=== PATIENT | female | born 1980 | race Caucasian/White ===

== ENCOUNTER 2021-03-29 09:09 | Outpatient (REF) | payer BC, SELFPAY ==
[2021-03-29 11:40] LABS: Appearance Urine CLOUDY; Color Urine YELLOW; Glucose Urine UA NEG (NEG); Leukocyte Esterase Urine NEG (NEG); Nitrite Urine POS (NEG); Specific Gravity - Urine >= 1.030 (1.005-1.025); UACC Culture Trigger YES; Urine Blood 3+ (NEG); Urine Ketones 5 MG/DL (NEG); Urine Protein TRACE MG/DL (NEG-TRACE)
[2021-03-29 11:49] LABS: Alanine Aminotransferase 9 U/L (0-31); Albumin Level 4.3 g/dL (3.5-5.0); Alkaline Phosphatase 71 U/L (39-117); Anion Gap 11 (12-20); Aspartate Amino Transferase 20 U/L (5-31); Bilirubin Total 0.9 mg/dL (0.0-1.0); Blood Urea Nitrogen 13 mg/dL (9-16); Calcium 9.6 mg/dL (8.4-10.2); Carbon Dioxide 26 mmol/L (22-29); Chloride 108 mmol/L (96-108); Cholesterol 148 mg/dL; Estimated Glomerular Filt Rate 60; Glucose Fasting 108 mg/dL (60-99); HDL Cholesterol 39 mg/dL; LDL Cholesterol Calculated 92 mg/dl; Potassium 4.1 mmol/L (3.3-5.1); Sodium 141 mmol/L (135-145); Total Protein 7.4 g/dL (6.5-8.0); Triglycerides 85 mg/dL
[2021-03-29 12:06] LABS: Amorphous Sediment Urine 4+ /LPF
[2021-03-29 12:07] LABS: Squamous Epithelial Cell Urine TRACE /LPF
[2021-03-29 12:08] LABS: Bacteria Urine TRACE /LPF
[2021-03-29 12:14] LABS: TSH reflex Free T4 1.24 uIU/mL (0.32-4.0)
== END 2021-03-29 09:10 | disposition home or self-care (01) ==
LOC: HO.HMGCLDS 09:09
PROVIDERS: PCP Nurse Practitioner Family; Visit Provider Nurse Practitioner Family
DX: Z00.00 Encounter for general adult medical examination without abnormal findings (principal)
CPT/HCPCS: 36415; 80053; 80061; 81001; 84443; 87086

== ENCOUNTER 2021-04-05 12:18 | Outpatient (REF) | payer BC, SELFPAY ==
[2021-04-05 13:52] LABS: Urine Cytology See Pathology rpt
[2021-04-05 13:59] LABS: Appearance Urine CLEAR; Color Urine YELLOW; Glucose Urine UA NEG (NEG); Leukocyte Esterase Urine NEG (NEG); Nitrite Urine NEG (NEG); UACC Culture Trigger NO; Urine Blood 2+ (NEG); Urine Ketones NEG (NEG); Urine Protein NEG (NEG-TRACE)
[2021-04-05 14:14] LABS: Squamous Epithelial Cell Urine TRACE /LPF; WBC Urine 0-2 /HPF (0-4)
== END 2021-04-05 12:19 | disposition home or self-care (01) ==
LOC: HO.HMGCLDS 12:18
PROVIDERS: PCP Nurse Practitioner Family; Visit Provider Nurse Practitioner Family
DX: Z00.00 Encounter for general adult medical examination without abnormal findings (principal); R31.29 Other microscopic hematuria
CPT/HCPCS: 81001; 87086; 88112

== ENCOUNTER 2021-04-23 13:04 | Outpatient (REF) | payer BC, SELFPAY ==
--- NOTE | ~2021-04-23 | US_ITS ---
EXAMINATION: US RETROPERITONEAL COMPLETE (RENAL) CLINICAL INFORMATION: Other microscopic hematuria. COMPARISON: None TECHNIQUE: Real-time imaging of the kidneys and bladder. FINDINGS: RIGHT KIDNEY: 9.6 x 4.7 x 5.6 cm (SAG x AP x TRV). The kidney is normal in size, contour, and echogenicity. Renal cortical thickness is normal. No calculi or focal parenchymal lesions. No hydronephrosis. LEFT KIDNEY: 9.2 x 5.0 x 4.5 cm (SAG x AP x TRV). The kidney is normal in size, contour, and echogenicity. Renal cortical thickness is normal. No hydronephrosis. There is anechoic cyst in midpole measuring 1.1 x 0.78 x 1.2 cm. There are 3 echogenic stones in the midpole measuring 0.45 x 0.33 x 0.25 cm, 0.14 x 0.17 x 0.16 cm and 0.28 x 0.22 x 0.25 cm. There is no caliectasis or hydronephrosis. BLADDER: Well distended and normal. Bilateral ureteral jets are demonstrated. Prevoid bladder volume is 309 mL. Postvoid bladder volume is 23.9 mL. US/US retroperitoneal comp IMPRESSION: 3 nonobstructive echogenic calculi midpole left kidney. Small midpole left renal cyst. Right kidneys unremarkable. Small postvoid residual bladder volume. Normal bilateral ureteral jets seen..
[2021-04-23 16:17] LABS: Urine Cytology See Pathology rpt
[2021-04-23 16:19] LABS: Appearance Urine CLEAR; Color Urine YELLOW; Glucose Urine UA NEG (NEG); Leukocyte Esterase Urine TRACE (NEG); Nitrite Urine NEG (NEG); UACC Culture Trigger YES; Urine Blood 2+ (NEG); Urine Ketones NEG (NEG); Urine Protein NEG (NEG-TRACE)
[2021-04-23 16:38] LABS: Bacteria Urine TRACE /LPF; Mucus Urine TRACE /LPF; Squamous Epithelial Cell Urine TRACE /LPF; WBC Clumps Urine NOTED
== END 2021-04-23 13:05 | disposition home or self-care (01) ==
LOC: HO.US 13:04
PROVIDERS: PCP Nurse Practitioner Family; Visit Provider Nurse Practitioner Family
DX: R31.29 Other microscopic hematuria (principal)
CPT/HCPCS: 76770; 81001; 87086; 88112

== ENCOUNTER → 2021-06-07 14:27 | Outpatient (BNVA) | payer BC, SELFPAY | PROVIDERS: PCP Nurse Practitioner Family ==

== ENCOUNTER 2021-10-07 15:13 | Outpatient (REF) | payer BC, OTHER, SELFPAY ==
--- NOTE | ~2021-10-07 | US_ITS ---
EXAMINATION: US RETROPERITONEAL LIMITED (RENAL ONLY) CLINICAL INFORMATION: Calculus of kidney. COMPARISON: Renal ultrasound 04/23/2021. TECHNIQUE: Real-time imaging of the kidneys. FINDINGS: RIGHT KIDNEY: 9.9 x 3.9 x 4.4 cm (SAG x AP x TRV). The kidney is normal in size, contour, and echogenicity. Renal cortical thickness is normal. No calculi or focal parenchymal lesions. No hydronephrosis. LEFT KIDNEY: 10.4 x 4.6 x 7.2 cm (SAG x AP x TRV). The kidney is normal in size, contour, and echogenicity. Renal cortical thickness is normal. No hydronephrosis. A 1.3 cm likely benign renal cyst demonstrates a 5 mm calcification associated with it favored to reflect a mural calcification rather than a stone. 3 mm echogenic focus in the left mid renal pole does not demonstrate shadowing or twinkle artifact, similar to prior. US/US renal BI IMPRESSION: A 1.3 cm likely benign left renal cyst demonstrates a 5 mm calcification associated with it favored to reflect a mural calcification rather than a stone. No routine imaging follow-up recommended. Again seen is a 3 mm echogenic focus in the left mid renal pole which does not demonstrate shadowing or twinkle artifact, possibly a vascular reflector, with stone considered less likely. CT stone protocol could be confirmatory if warranted.
== END 2021-10-07 15:14 | disposition home or self-care (01) ==
LOC: HO.HMGCX 15:13
DX: N20.0 Calculus of kidney (principal); N28.1 Cyst of kidney, acquired
CPT/HCPCS: 76775

== ENCOUNTER 2022-03-02 08:33 | Outpatient (REF) | payer OTHER, SELFPAY ==
[2022-03-02 11:04] LABS: MANUAL DIFF FLAG NO
[2022-03-02 11:10] LABS: Basophils Percent Auto 0.5 % (0-2); Eosinophils Absolute Auto 0.1 X10*3/uL (0.0-0.4); Eosinophils Percent Auto 1.2 % (0-4); Hematocrit 40.8 % (37.0-47.0); Hemoglobin 13.7 g/dl (12.0-16.0); Imm Gran Abs Auto 0.02 X10*3/uL (0.00-0.03); Imm Gran Pct Auto 0.3 % (0.0-0.4); Lymphocytes Absolute Auto 2.1 X10*3/uL (1.2-4.9); Lymphocytes Percent Auto 33.8 % (20-40); Mean Corpuscular HGB Conc 33.6 g/dl (31.0-35.0); Mean Corpuscular Hemoglobin 31.7 pg (27.0-33.0); Mean Corpuscular Volume 94.4 fL (80.0-98.0); Mean Platelet Volume 10.5 fL (9.4-12.3); Monocytes Absolute Auto 0.3 X10*3/uL (0.1-1.2); Monocytes Percent Auto 5.1 % (2-11); Neutrophils Absolute Auto 3.6 x10*3/uL (2.0-8.3); Neutrophils Percent Auto 59.1 % (45-73); Platelet Count 233 X10*3/uL (160-400); Red Blood Count 4.32 X10*6/uL (4.20-5.50); Red Cell Distribution Width 12.5 % (11.0-16.0); White Blood Count 6.1 X10*3/uL (4.8-10.8)
[2022-03-02 11:18] LABS: Appearance Urine Clear; Color Urine Yellow; Glucose Urine UA Negative (Negative); Leukocyte Esterase Urine Small (1+) (Negative); Nitrite Urine Negative (Negative); PH 5.5 (5.0-9.0); Specific Gravity - Urine 1.015 (1.005-1.025); UMIC TRIGGER UACC YES; Urine Blood Moderate (2+) (Negative); Urine Ketones Negative (Negative); Urine Protein Negative (Neg-Trace)
[2022-03-02 11:29] LABS: Bacteria Urine None Seen (None Seen); Hyaline Casts Urine 0-2 /LPF (0-2); UACC Culture Trigger YES; WBC Urine 0-5 /HPF (0-5)
[2022-03-02 11:46] LABS: Alanine Aminotransferase 9 U/L (0-31); Albumin Level 4.2 g/dL (3.5-5.0); Alkaline Phosphatase 67 U/L (39-117); Anion Gap 14 (12-20); Aspartate Amino Transferase 20 U/L (5-31); Bilirubin Total 0.7 mg/dL (0.0-1.0); Blood Urea Nitrogen 13 mg/dL (9-16); Calcium 9.2 mg/dL (8.4-10.2); Carbon Dioxide 24 mmol/L (22-29); Chloride 105 mmol/L (96-108); Cholesterol 168 mg/dL; Estimated Glomerular Filt Rate > 60; Glucose Fasting 93 mg/dL (60-99); HDL Cholesterol 50 mg/dL; LDL Cholesterol Calculated 101 mg/dl; Potassium 3.9 mmol/L (3.3-5.1); Sodium 139 mmol/L (135-145); Total Protein 7.2 g/dL (6.5-8.0); Triglycerides 87 mg/dL
[2022-03-02 11:49] LABS: TSH reflex Free T4 1.68 uIU/mL (0.32-4.0)
== END 2022-03-02 08:34 | disposition home or self-care (01) ==
LOC: HO.LAB 08:33
PROVIDERS: PCP Nurse Practitioner Family; Visit Provider Nurse Practitioner Family
DX: Z00.00 Encounter for general adult medical examination without abnormal findings (principal)
CPT/HCPCS: 36415; 80053; 80061; 81001; 84443; 85025; 87086

== ENCOUNTER 2022-03-25 11:29 | Outpatient (REF) | payer OTHER, SELFPAY | END 2022-03-25 11:30 | disposition home or self-care (01) | LOC: HO.HMGCX 11:29 | PROVIDERS: PCP Nurse Practitioner Family; Visit Provider Nurse Practitioner Family | DX: R31.29 Other microscopic hematuria (principal) | CPT/HCPCS: 76775 ==

== ENCOUNTER 2022-08-02 08:21 | Outpatient (REF) | payer OTHER, SELFPAY ==
[2022-08-02 11:14] LABS: MANUAL DIFF FLAG NO
[2022-08-02 11:37] LABS: Basophils Percent Auto 0.3 % (0-2); Eosinophils Percent Auto 0.5 % (0-4); Hemoglobin 13.2 g/dl (12.0-16.0); Imm Gran Abs Auto 0.02 X10*3/uL (0.00-0.03); Imm Gran Pct Auto 0.3 % (0.0-0.4); Lymphocytes Absolute Auto 2.1 X10*3/uL (1.2-4.9); Lymphocytes Percent Auto 35.3 % (20-40); Mean Corpuscular Hemoglobin 31.1 pg (27.0-33.0); Mean Corpuscular Volume 94.1 fL (80.0-98.0); Mean Platelet Volume 10.4 fL (9.4-12.3); Monocytes Absolute Auto 0.3 X10*3/uL (0.1-1.2); Monocytes Percent Auto 5.7 % (2-11); Neutrophils Absolute Auto 3.5 x10*3/uL (2.0-8.3); Neutrophils Percent Auto 57.9 % (45-73); Platelet Count 240 X10*3/uL (160-400); Red Blood Count 4.25 X10*6/uL (4.20-5.50); Red Cell Distribution Width 12.4 % (11.0-16.0)
[2022-08-02 12:09] LABS: Alanine Aminotransferase 7 U/L (0-31); Albumin Level 4.2 g/dL (3.5-5.0); Alkaline Phosphatase 56 U/L (39-117); Anion Gap 10 (12-20); Aspartate Amino Transferase 20 U/L (5-31); Blood Urea Nitrogen 14 mg/dL (9-16); Calcium 9.5 mg/dL (8.4-10.2); Carbon Dioxide 27 mmol/L (22-29); Chloride 107 mmol/L (96-108); Cholesterol 133 mg/dL; Estimated Glomerular Filt Rate > 60; Glucose Fasting 103 mg/dL (60-99); HDL Cholesterol 42 mg/dL; LDL Cholesterol Calculated 77 mg/dl; Potassium 3.9 mmol/L (3.3-5.1); Sodium 140 mmol/L (135-145); Total Protein 6.9 g/dL (6.5-8.0); Triglycerides 70 mg/dL
[2022-08-02 12:28] LABS: TSH reflex Free T4 2.03 uIU/mL (0.32-4.0)
== END 2022-08-02 08:22 | disposition home or self-care (01) ==
LOC: HO.HMGCLDS 08:21
PROVIDERS: PCP Nurse Practitioner Family; Visit Provider Nurse Practitioner Family
DX: Z00.00 Encounter for general adult medical examination without abnormal findings (principal)
CPT/HCPCS: 36415; 80053; 80061; 84443; 85025

== ENCOUNTER 2022-11-29 09:47 | Outpatient (REF) | payer OTHER, SELFPAY ==
--- NOTE | ~2022-11-29 | US_ITS ---
EXAMINATION: US RETROPERITONEAL LIMITED (RENAL ONLY) CLINICAL INFORMATION: Calculus of kidney. COMPARISON: Renal ultrasound 03/25/2022 and 10/07/2021. TECHNIQUE: Real-time imaging of the kidneys. FINDINGS: RIGHT KIDNEY: 10.1 x 3.6 x 5.6 cm (SAG x AP x TRV). The kidney is normal in size, contour, and echogenicity. Renal cortical thickness is normal. No calculi or focal parenchymal lesions. No hydronephrosis. Extrarenal pelvis incidentally noted. LEFT KIDNEY: 10.5 x 4.3 x 4.7 cm (SAG x AP x TRV). The kidney is normal in size, contour, and echogenicity. Renal cortical thickness is normal. No renal calculi or hydronephrosis. Upper pole cyst with milk of calcium measures 1.2 x 1.0 x 1.2 cm. Upper pole cyst with milk of calcium measures 0.4 x 0.4 x 0.3 cm. US/US renal BI IMPRESSION: Stable upper pole left renal cysts. No suspicious features.
== END 2022-11-29 09:48 | disposition home or self-care (01) ==
LOC: HO.HMGCX 09:47
PROVIDERS: PCP Nurse Practitioner Family; Visit Provider Urology
DX: N20.0 Calculus of kidney (principal)
CPT/HCPCS: 76775

== ENCOUNTER 2022-12-13 15:20 | Outpatient (AMB) | payer OTHER, SELFPAY ==
--- NOTE | 2022-12-13 15:22 | A.OFFVIS_ITS ---
Intake Intake Visit Reasons: 1 year stone follow up with renal US(set) Intake Note: Patient presents today for follow up kidney stone/ kidney cyst/ultrasound (imaging 11/29/22) Urology Medications: Tadalafil Blood Thinner: None Hoister Required: No Accompanied by: Self / Same As Patient Allergies No Known Allergies Allergy (Verified 12/13/22 16:10) Medication List - Last Reconciled 12/13/22 by CELENA Leger irbesartan 75 mg PO DAILY Lacto no.61-Hatnml-ZXR-larch 25B cell-25B cell-50 mg (Women's Probiotic) caps PO medroxyprogesterone mg IM multivitamin (Daily Multi-Vitamin tablet) 1 tab PO DAILY HPI HPI Comments History of Present Illness Details Mylene is a very pleasant 42-year-old female patient of Dr. Gonzalez. She presents to the office today for follow-up of her renal cyst and microscopic hematuria. In discussion with the patient today she reports to be doing and feeling well. Recent renal imaging results reviewed with the patient today. Right kidney with no calculi, lesions, and or hydronephrosis noted. Extrarenal pelvis incidentally noted. Left kidney with no calculi or h ydronephrosis noted. Upper pole cyst measures 1.2 x 1.0 x 1.2 cm. Upper pole cyst measures 0.4 x 0.4 x 0.3 cm. Stable upper pole left renal cysts. No suspicious features per radiology report. When asked patient denies any bothersome urinary issues or concerns at this time. She denies urinary urgency, urinary frequency, incontinence, nocturia, hematuria, dysuria, foul smelling urine, changes to urinary stream, flank pain, fever, and or chills. She is happy with her current voiding parameters. In office urinalysis results reviewed with the patient today. Discussed at length potential causes for microscopic hematuria as well as renal cysts. Discussed surveillance monitoring verses further microscopic hematuria workup. Patient denies any previous chemical exposure or previous smoking history. She otherwise offers no issues or concerns at this time. [facility] Medical History Renal cyst Renal calculi Surgical History [place] teeth extracted H/O bilateral breast reduction surgery Family History Father Hypertension Diabetes Mother Hypertension Breast cancer Social History Housing: House Patient Tobacco Use Status: Never used Tobacco e-Cigarette/Vaping Use: Never Used Current occupational status: employed Cognitive needs: No Hearing needs: No Vision needs: No Review of Systems Const All systems reviewed & are unremarkable except as noted in HPI and below Eyes Reports no additional complaints ENT Reports no additional complaints Card Reports no additional complaints Resp Reports no additional complaints GI Reports no additional complaints Reports as per HPI Musc Reports no additional complaints Neuro Reports no additional complaints Psych Reports no additional complaints Endo Reports no additional complaints Wily/Lymph Reports no additional complaints Aller/Immun Reports no additional complaints Physical Exam Const General: cooperative, healthy appearing, comfortable, no acute distress, well developed, alert and awake Orientation/consciousness: patient oriented x3 Limitations: no limitations HEENT Head: Yes normal to inspection, Yes normocephalic and Yes atraumatic Ears: hearing grossly normal bilaterally Eyes General: appearance normal, both eyes and all related structures Neck Neck: Yes normal visual inspection and Yes trachea midline Chest Chest palpation & inspection: normal inspection of the chest Resp Effort & Inspection: normal respiratory effort and able to speak in complete sentences Cardio Rate: regular rate GI Inspection: Yes normal to inspection General: Yes no CVA tenderness Back/Spine/Pelvis Back: no CVA tenderness Skin General skin exam: no rashes or lesions noted Neuro General: patient oriented x3 Extrem General: Yes normal to inspection Psych Appearance: grossly normal and well kempt Mental Status: mental status grossly normal Speech and movement: Normal speech and movement present and Clear speech present Affect: normal affect Attitude: cooperative Thought process: Normal thought process present Thought content: Normal thought content present Insight: Good insight present (Psych) Judgement: Good judgement present (Psych) Results AMB Urinalysis, Automated UA Leukoctes 125 Jose Elias/uL Last Edit by Shoshana Torres on 12/13/22 15:48 UA Nitrite Last Edit by Shoshana Torres on 12/13/22 15:48 UA Urobilinogen 0.2 mg/dL Last Edit by Shoshana Torres on 12/13/22 15:48 UA Protein 0 mg/dL Last Edit by Shoshana Torres on 12/13/22 15:48 UA pH 6.0 Last Edit by Shoshana Torres on 12/13/22 15:48 UA Blood 200 Deep/uL Last Edit by Shoshana Torres on 12/13/22 15:48 UA Specific [place] 1.020 Last Edit by Shoshana Torres on 12/13/22 15:48 UA Ketone Negative Last Edit by Shoshana Torres on 12/13/22 15:48 UA Bilirubin 0 mg/dL Last Edit by Shoshana Torres on 12/13/22 15:48 UA Glucose 0 mg/dL Last Edit by Shoshana Torres on 12/13/22 15:48 Results Reviewed Results Reviewed: Laboratory Last Values Urine pH (Auto) 6.0 12/13/22 15:27 Specific [place] (Auto) 1.020 12/13/22 15:27 Urine Protein (Auto) 0 mg/dL 12/13/22 15:27 Glucose (UA)(Auto) 0 mg/dL 12/13/22 15:27 Urine Ketones (Auto) Negative 12/13/22 15:27 Urine Blood (Auto) 200 Deep/uL 12/13/22 15:27 Urine Bilirubin (Auto) 0 mg/dL 12/13/22 15:27 Urine Urobilinogen (Auto) 0.2 mg/dL 12/13/22 15:27 Leukocyte Esterase (Auto) 125 Jose Elias/uL 12/13/22 15:27 Date of Service: 11/29/22 Procedure(s): US renal BI EXAMINATION: US RETROPERITONEAL LIMITED (RENAL ONLY) FINDINGS: RIGHT KIDNEY: 10.1 x 3.6 x 5.6 cm (SAG x AP x TRV). The kidney is normal in size, contour, and echogenicity. Renal cortical thickness is normal. No calculi or focal parenchymal lesions. No hydronephrosis. Extrarenal pelvis incidentally noted. LEFT KIDNEY: 10.5 x 4.3 x 4.7 cm (SAG x AP x TRV). The kidney is normal in size, contour, and echogenicity. Renal cortical thickness is normal. No renal calculi or hydronephrosis. Upper pole cyst with milk of calcium measures 1.2 x 1.0 x 1.2 cm. Upper pole cyst with milk of calcium measures 0.4 x 0.4 x 0.3 cm. IMPRESSION: Stable upper pole left renal cysts. No suspicious features. Assessment & Plan Assessment & Plan (1) Renal cyst: Code(s): N28.1 - Cyst of kidney, acquired (2) Renal calculi: Code(s): N20.0 - Calculus of kidney (3) Microscopic hematuria: Code(s): R31.29 - Other microscopic hematuria Plan In office urinalysis results reviewed with the patient today; as noted above; will send for urine cytology Recent renal imaging results reviewed with the patient today; as noted above. Discussed at length potential causes and staging of renal cysts Patient denies any bothersome urinary issues or concerns at this time. Discussed educated and encouraged to continue drinking plenty of water daily. Renal ultrasound in 1 year Follow-up in 1 year with imaging to be completed prior; or sooner with any issues, concerns, and or questions. Orders: Orders Urine Cytology Today R31.29 - Other microscopic hematuria AMB Urinalysis Automated Today Z13.9 - Encounter for screening, unspecified US renal BI 364 Days N20.0 - Calculus of kidney, N28.1 - Cyst of kidney, acquired, R31.29 - Other microscopic hematuria Patient Instructions: The patient had an opportunity to ask questions regarding the treatment plan. All questions were answered. Physical exam, labs, and imaging were discussed and reviewed in detail. As well as risks, benefits, and discussion of treatment choices. No major barriers to understanding were identified. The patient expressed understanding and agreement with the above treatment plan. The patient was made aware they should contact our office by phone for worsening of their current condition, the appearance of new symptoms, or with any questions or concerns. Compliance is encouraged with any medications and follow up testing that is ordered. It is a privilege to be allowed the opportunity to participate in? your urological care.? Again, if you have any questions or concerns If you have any questions or concerns please do not hesitate to contact me. The office is [phone]. This note is constructed using voice recognition software. While every effort has been made to ensure accuracy phone technician errors may have been included. Yours sincerely, CELENA Leger Coding Level of Care Code Est Pt Level 3 (47846) Diagnoses Renal cyst N28.1 Renal calculi N20.0 Microscopic hematuria R31.29
== END 2022-12-13 16:05 | disposition home or self-care (01) ==
PROVIDERS: PCP Nurse Practitioner Family; Visit Provider Nurse Practitioner Family
DX: N28.1 Cyst of kidney, acquired (principal); N20.0 Calculus of kidney; R31.29 Other microscopic hematuria; Z13.9 Encounter for screening, unspecified
CPT/HCPCS: 99213

== ENCOUNTER 2022-12-13 15:20 | Outpatient (REF) | payer OTHER, SELFPAY ==
[2022-12-13 16:24] LABS: Urine Cytology See Pathology rpt
== END 2022-12-13 15:21 | disposition home or self-care (01) ==
LOC: HO.LNP 15:20
PROVIDERS: PCP Nurse Practitioner Family; Visit Provider Nurse Practitioner Family
DX: R31.29 Other microscopic hematuria (principal); N28.1 Cyst of kidney, acquired; N20.0 Calculus of kidney
CPT/HCPCS: 81003; 88112

== ENCOUNTER 2023-01-24 12:50 | Outpatient (AMB) | payer OTHER, SELFPAY ==
--- NOTE | 2023-01-24 12:54 | MHC.PC.OV ---
Vital Signs 01/24/23 12:58 Height 4 ft 11 in Weight 130 lb BMI 26.3 BP 138/98 H Blood Pressure Location Rt brachial Position Sitting Pulse 73 Pulse Source Pulse Oximeter Pulse Oximetry (%) 99 Oxygen Delivery Method Room Air Intake Visit Reasons: Annual PE Allergies No Known Allergies Allergy (Verified 01/24/23 12:58) Medication List - Last Reconciled 01/24/23 by TERENCE Sheth-LINDA irbesartan 75 mg PO DAILY Lacto no.81-Dikjmm-BOR-larch 25B cell-25B cell-50 mg (Women's Probiotic) caps PO medroxyprogesterone mg IM multivitamin (Daily Multi-Vitamin tablet) 1 tab PO DAILY Tobacco use date assessed: 01/24/23 Dental Screening Dental Screen Date: 01/24/23 Did you have a dental visit in the last 12 months?: Yes Did you have a dental problem in the last 6 months where you did not have access to dental care?: No Was dental information given to patient?: Patient has dentist HPI Annual PE HPI Details Pt is here for a PE. Will order labs. Has a body technician/painter. HTN: Blood pressure is elevated, managed with irbesartan 75mg. Will add hydrochlorothiazide 12.5mg. Denies chest pain, shortness of breath, headache, dizziness, and blurred vision. Pt c/o bilat forearm pain and numbness. ? carpal tunnel vs tendonitis. Recommended bilat wrist braces at night, judging by her symptoms, she will keep me posted with symptoms. [facility] Medical History Renal cyst Renal calculi Surgical History [place] teeth extracted H/O bilateral breast reduction surgery Family History Father Hypertension Diabetes Mother Hypertension Breast cancer Social History Housing: House Patient Tobacco Use Status: Never used Tobacco e-Cigarette/Vaping Use: Never Used Current occupational status: employed Cognitive needs: No Hearing needs: No Vision needs: No Questionnaire PHQ-9 Over the last 2 weeks, how often have you been bothered by any of the following problems? 46954 - PHQ-9 Billing: Patient declined-do not bill Source: Developed by Drs. Zachery Blood, Magdalena Whitehead, Bear Watkins and colleagues, with an educational rihcard from [employer]. Thrive Questionnaire Date Thrive assessed: 01/24/23 AUDIT C Alcohol Use Questionnaire (AUDIT-C) 1. How often do you have a drink containing alcohol?: Monthly or less 2. How many drinks containing alcohol do you have on a typical day when you are drinking?: 1 or 2 3. How often do you have six or more drinks on one occasion?: Never Total Score: 1 Score Reviewed/Action Taken: No LUIS EDUARDO-7 AMB Questionnaire LUIS EDUARDO-7 Date LUIS EDUARDO - 7 assessed: 01/24/23 Source: Developed by Drs. Zachery Blood, Magdalena Whitehead, Bear Watkins and colleagues, with an educational richard from [employer]. LUIS EDUARDO-7 Assessment Billing LUIS EDUARDO-7 Assessment Tool: pt declined-do not bill Review of Systems Const Denies chills and Denies fever(s) Eyes Denies blurry vision ENT Denies vertigo, Denies dizziness and Denies sore throat Card Denies chest pain at rest, Denies chest pain with activity, Denies diaphoresis, Denies dyspnea and Denies dyspnea on exertion Resp Denies cough, Denies dyspnea, Denies dyspnea on exertion and Denies wheezing GI Denies abdominal pain, Denies melena, Denies hematochezia, Denies constipation, Denies diarrhea and Denies loose stools Denies hematuria Musc Denies numbness and Denies tingling Skin/Breast Denies lesions Neuro Denies vertigo, Denies dizziness, Denies numbness and Denies tingling Psych Denies anxiety, Denies depression, Denies homicidal ideation, Denies suicidal ideation and Denies other (substance abuse) Aller/Immun Denies wheezing Physical exam (Primary Care) Vital Signs: Last Vital Signs Pulse 73 01/24/23 12:58 BP 138/98 H 01/24/23 12:58 Pulse Ox 99 01/24/23 12:58 Oxygen Delivery Method Room Air 01/24/23 12:58 BMI result Body Mass Index 26.3 Tobacco/Smoking Status: Tobacco use Status Tobacco use date assessed 01/24/23 01/24/23 12:59 Patient Tobacco Use Status Never used Tobacco 01/24/23 12:55 e-Cigarette/Vaping Use Never Used 01/24/23 12:55 Thrive Assessment: Date of Thrive Assessment Date Thrive assessed 01/18/22 01/24/23 12:55 Const General: cooperative Nutritional Appearance: well nourished Orientation/consciousness: patient oriented x3 HENMT Head: Yes normal to inspection, Yes normocephalic and Yes atraumatic Ears: TM's normal bilaterally Eyes General: appearance normal, both eyes and all related structures Alignment and Position: alignment normal and position normal Neck Neck: Yes normal visual inspection and Yes no lymphadenopathy Thyroid: Thyroid normal Resp Effort & Inspection: normal respiratory effort Auscultation: clear to auscultation bilaterally Cardio Rate: regular rate Rhythm: regular rhythm Heart sounds: S1 normal heart sound present, S2 normal heart sound present and no murmurs GI Palpation (GI): Soft to palpation and nontender Auscultation: normal bowel sounds Skin Rashes: no rashes Neuro General: patient oriented x3, moves all extremities, no focal motor deficits and deep tendon reflexes 2+ bilaterally Romberg Test: Negative Extrem Other: - phalens, - tinels, with wrist flexion and extension against resistance no pain noted to elbow Psych Appearance: grossly normal Mental Status: mental status grossly normal Speech and movement: Normal speech and movement present Affect: normal affect Attitude: cooperative Thought process: Normal thought process present Thought content: Normal thought content present Insight: Good insight present (Psych) Judgement: Good judgement present (Psych) Assessment and Plan Assessment & Plan (1) Physical exam: Code(s): Z00.00 - Encounter for general adult medical examination without abnormal findings Plan: Labs ordered (2) Forearm pain: Code(s): M79.639 - Pain in unspecified forearm Plan: trying braces at night (3) HTN (hypertension): Code(s): I10 - Essential (primary) hypertension Plan: added hctz Plan The patient agreed to the use of a medical data entry clerk for this encounter. Scribed for CELENA Padilla by lupe Marcus scribe, on 01/24/2023 at 13:05 EST Orders: Orders Complete Blood Count Auto Diff Today Z00.00 - Encounter for general adult medical examination without abnormal findings Comprehensive [place]. Panel Fast Today Z00.00 - Encounter for general adult medical examination without abnormal findings TSH reflex Free T4 Today Z00.00 - Encounter for general adult medical examination without abnormal findings UA CC w/rflx Micro + Cult Today Z00.00 - Encounter for general adult medical examination without abnormal findings Lipid Panel Today Z00.00 - Encounter for general adult medical examination without abnormal findings Medications: New hydrochlorothiazide 12.5 mg PO DAILY 30 days 30 caps 2RF Coding Level of Care Code Est Pt Prev Care 40-64y(78477) Diagnoses Physical exam Z00.00 Forearm pain M79.639 HTN (hypertension) I10
[2023-01-24 12:58] VITALS: BP 138/98; PULSE 73; O2SAT 99; BMI 26.3
== END 2023-01-24 14:38 | disposition home or self-care (01) ==
PROVIDERS: PCP Nurse Practitioner Family; Visit Provider Nurse Practitioner Family
DX: Z00.00 Encounter for general adult medical examination without abnormal findings (principal); M79.639 Pain in unspecified forearm; I10 Essential (primary) hypertension
CPT/HCPCS: 99396

== ENCOUNTER 2023-06-01 14:54 | Outpatient (AMB) | payer BC, SELFPAY ==
[2023-06-01 15:00] VITALS: BP 138/90; PULSE 95; O2SAT 100; BMI 26.1
--- NOTE | 2023-06-01 15:00 | MHC.PC.OV ---
Vital Signs 06/01/23 15:00 Height 4 ft 11 in Weight 129 lb 6 oz BMI 26.1 BP 138/90 H Blood Pressure Location Lt brachial Position Sitting Pulse 95 Pulse Source Pulse Oximeter Pulse Oximetry (%) 100 Oxygen Delivery Method Room Air Intake Visit Reasons: 4 month fu Intake Note: Pt is here to follow up for her HTN Pt has her mammogram tomorrow Allergies No Known Allergies Allergy (Verified 06/01/23 15:03) Tobacco use date assessed: 06/01/23 Dental Screening Dental Screen Date: 06/01/23 Did you have a dental visit in the last 12 months?: Yes Did you have a dental problem in the last 6 months where you did not have access to dental care?: No Was dental information given to patient?: Patient has dentist HPI 4 month fu HPI Details HTN: Blood pressure is managed with hydrochlorothiazide 12.5mg and irbesartan 75mg. BP is elevated today. Pt has not been checking her blood pressure at home, reenforced the importance of this. Will add amlodipine 2.5mg. Will have pt monitor her blood pressure at home and send readings via portal or drop off. Denies chest pain, shortness of breath, headache, dizziness, and blurred vision. Pt c/o insomnia. She has tried OTC meds for this which do not help much. Will send trazodone 50mg. [facility] Medical History Renal cyst Renal calculi Surgical History [place] teeth extracted H/O bilateral breast reduction surgery Family History Father Hypertension Diabetes Mother Hypertension Breast cancer Social History Housing: House Patient Tobacco Use Status: Never used Tobacco e-Cigarette/Vaping Use: Never Used Current occupational status: employed Cognitive needs: No Hearing needs: No Vision needs: No Questionnaire PHQ-9 Over the last 2 weeks, how often have you been bothered by any of the following problems? 64646 - PHQ-9 Billing: Patient declined-do not bill Source: Developed by Drs. Zachery Blood, Bear Osborn and colleagues, with an educational richard from [employer]. Thrive Questionnaire Date Thrive assessed: 06/01/23 I am a: Patient What is your living situation today?: I have a steady place to live Within the past 12 months, did the food you bought not last and you didn't have the money to get more?: Never true Within the past 12 months, did you worry whether your food would run out before you got money to buy more?: Never true Do you have trouble paying for medicines?: No Do you have trouble getting transportation to medical appointments?: No Do you have trouble paying your heating and electricity bill?: No Do you have trouble taking care of your child, family member or friend?: No Do you have trouble with day-to-day activities such as bathing, preparing meals, shopping, managing finances, etc.?: No Are you currently unemployed and looking for a job?: No Are you interested in more education?: No THRIVE Score: 0 AUDIT C Alcohol Use Questionnaire (AUDIT-C) 1. How often do you have a drink containing alcohol?: 2-4 times a month 2. How many drinks containing alcohol do you have on a typical day when you are drinking?: 1 or 2 3. How often do you have six or more drinks on one occasion?: Never Total Score: 2 Score Reviewed/Action Taken: Yes LUIS EDUARDO-7 AMB Questionnaire LUIS EDUARDO-7 Date LUIS EDUARDO - 7 assessed: 06/01/23 Source: Developed by Drs. Zachery Blood, Bear Osborn and colleagues, with an educational richard from [employer]. LUIS EDUARDO-7 Assessment Billing LUIS EDUARDO-7 Assessment Tool: pt declined-do not bill Review of Systems Const Reports as per HPI Physical exam (Primary Care) Vital Signs: Last Vital Signs Pulse 95 06/01/23 15:00 BP 138/90 H 06/01/23 15:00 Pulse Ox 100 06/01/23 15:00 Oxygen Delivery Method Room Air 06/01/23 15:00 BMI result Body Mass Index 26.1 Tobacco/Smoking Status: Tobacco use Status Tobacco use date assessed 06/01/23 06/01/23 15:08 Patient Tobacco Use Status Never used Tobacco 06/01/23 15:08 e-Cigarette/Vaping Use Never Used 06/01/23 15:08 Thrive Assessment: Date of Thrive Assessment Date Thrive assessed 06/01/23 06/01/23 15:25 Const General: cooperative Orientation/consciousness: patient oriented x3 Resp Effort & Inspection: normal respiratory effort Auscultation: clear to auscultation bilaterally Cardio Rate: regular rate Rhythm: regular rhythm Heart sounds: S1 normal heart sound present and S2 normal heart sound present Neuro General: patient oriented x3 Extrem Right lower extremity: no edema Left lower extremity: no edema Psych Appearance: grossly normal Mental Status: mental status grossly normal Speech and movement: Normal speech and movement present Affect: normal affect Attitude: cooperative Thought process: Normal thought process present Thought content: Normal thought content present Insight: Good insight present (Psych) Judgement: Good judgement present (Psych) Assessment and Plan Assessment & Plan (1) HTN (hypertension): Code(s): I10 - Essential (primary) hypertension Plan: added amlodipine, encouraged pt to take her BP at home (2) Insomnia: Code(s): G47.00 - Insomnia, unspecified Plan: start trazodone Plan The patient agreed to the use of a certified medical aide for this encounter. Scribed for CELENA Padilla by Suzanna Norton certified medical aide, on 06/01/2023 at 15:30 EST. Medications: New amlodipine 2.5 mg PO DAILY 90 tabs 0RF trazodone 50 mg PO BEDTIME PRN 30 tabs 2RF sleep Coding Level of Care Code Est Pt Level 3 (36384) Diagnoses HTN (hypertension) I10 Insomnia G47.00
== END 2023-06-01 16:42 | disposition home or self-care (01) ==
PROVIDERS: PCP Nurse Practitioner Family; Visit Provider Nurse Practitioner Family
DX: I10 Essential (primary) hypertension (principal); G47.00 Insomnia, unspecified
CPT/HCPCS: 99213

== ENCOUNTER 2023-06-27 08:25 | Outpatient (REF) | payer BC, SELFPAY ==
[2023-06-27 11:46] LABS: MANUAL DIFF FLAG NO
[2023-06-27 12:07] LABS: Appearance Urine Turbid; Color Urine Dark Yellow; Glucose Urine UA Negative (Negative); Leukocyte Esterase Urine Moderate (2+) (Negative); Nitrite Urine Negative (Negative); PH 5.5 (5.0-9.0); Specific Gravity - Urine >= 1.030 (1.005-1.025); UMIC TRIGGER UACC YES; Urine Blood Large (3+) (Negative); Urine Ketones Trace mg/dL (Negative); Urine Protein Trace mg/dL (Neg-Trace)
[2023-06-27 12:10] LABS: Basophils Percent Auto 0.5 % (0-2); Eosinophils Absolute Auto 0.1 X10*3/uL (0.0-0.4); Eosinophils Percent Auto 2.2 % (0-4); Hematocrit 39.1 % (37.0-47.0); Hemoglobin 13.2 g/dl (12.0-16.0); Imm Gran Abs Auto 0.01 X10*3/uL (0.00-0.03); Imm Gran Pct Auto 0.2 % (0.0-0.4); Lymphocytes Absolute Auto 2.2 X10*3/uL (1.2-4.9); Lymphocytes Percent Auto 35.7 % (20-40); Mean Corpuscular HGB Conc 33.8 g/dl (31.0-35.0); Mean Corpuscular Hemoglobin 31.7 pg (27.0-33.0); Mean Corpuscular Volume 93.8 fL (80.0-98.0); Mean Platelet Volume 10.2 fL (9.4-12.3); Monocytes Absolute Auto 0.4 X10*3/uL (0.1-1.2); Monocytes Percent Auto 6.1 % (2-11); Neutrophils Absolute Auto 3.3 x10*3/uL (2.0-8.3); Neutrophils Percent Auto 55.3 % (45-73); Platelet Count 237 X10*3/uL (160-400); Red Blood Count 4.17 X10*6/uL (4.20-5.50); Red Cell Distribution Width 12.5 % (11.0-16.0)
[2023-06-27 12:13] LABS: Bacteria Urine None Seen (None Seen); UACC Culture Trigger YES; WBC Urine 21-50 /HPF (0-5)
[2023-06-27 12:56] LABS: Alanine Aminotransferase 9 U/L (0-31); Albumin Level 4.1 g/dL (3.5-5.0); Alkaline Phosphatase 53 U/L (39-117); Anion Gap 13 (12-20); Aspartate Amino Transferase 19 U/L (5-31); Bilirubin Total 0.7 mg/dL (0.0-1.0); Blood Urea Nitrogen 16 mg/dL (9-16); Calcium 8.9 mg/dL (8.4-10.2); Carbon Dioxide 24 mmol/L (22-29); Chloride 106 mmol/L (96-108); Cholesterol 147 mg/dL (<200); Estimated Glomerular Filt Rate > 60; Glucose Fasting 102 mg/dL (60-99); HDL Cholesterol 48 mg/dL (>40); LDL Cholesterol Calculated 83 mg/dL (<100); Potassium 3.7 mmol/L (3.3-5.1); Sodium 139 mmol/L (135-145); Total Protein 7.2 g/dL (6.5-8.0); Triglycerides 81 mg/dL (<150)
[2023-06-27 13:16] LABS: TSH reflex Free T4 1.41 uIU/mL (0.32-4.0)
== END 2023-06-27 08:26 | disposition home or self-care (01) ==
LOC: HO.HMGCLDS 08:25
PROVIDERS: PCP Nurse Practitioner Family; Visit Provider Nurse Practitioner Family
DX: Z00.00 Encounter for general adult medical examination without abnormal findings (principal); Z13.6 Encounter for screening for cardiovascular disorders; R82.90 Unspecified abnormal findings in urine
CPT/HCPCS: 36415; 80053; 80061; 81001; 81003; 84443; 85025; 87086

== ENCOUNTER 2023-11-29 15:21 | Outpatient (REF) | payer BC, SELFPAY ==
--- NOTE | ~2023-11-29 | US_ITS ---
EXAMINATION: US RETROPERITONEAL COMPLETE (RENAL) CLINICAL INFORMATION: Calculus of kidney. COMPARISON: Renal ultrasound 11/29/2022. TECHNIQUE: Real-time imaging of the kidneys. FINDINGS: RIGHT KIDNEY: 10.1 x 3.8 x 5.2 cm (SAG x AP x TRV). The kidney is normal in size, contour, and echogenicity. Renal cortical thickness is normal. No calculi or focal parenchymal lesions. No hydronephrosis. LEFT KIDNEY: 10.3 x 4.3 x 5.5 cm (SAG x AP x TRV). The kidney is normal in size, contour, and echogenicity. Renal cortical thickness is normal. There is a small 1.2 cm cyst present with some layering milk of calcium. A few punctate echogenic cortical foci are present. No collecting system calculi or focal parenchymal lesions. No hydronephrosis. US/US renal BI IMPRESSION: A few punctate echogenic foci are present in the left kidney which could represent tiny calcifications or possibly vascular calcifications. There Is no hydronephrosis. A small benign Bosniak class II left renal cyst is present. No further follow-up is needed. Electronically signed by: Cezar Wiggins MD 12/05/2023 12:56 AM EDT
== END 2023-11-29 15:22 | disposition home or self-care (01) ==
LOC: HO.HMGCX 15:21
PROVIDERS: PCP Nurse Practitioner Family; Visit Provider Nurse Practitioner Family
DX: N20.0 Calculus of kidney (principal); N28.1 Cyst of kidney, acquired; R31.29 Other microscopic hematuria
CPT/HCPCS: 76775

== ENCOUNTER 2024-02-09 14:19 | Outpatient (REF) | payer BC, SELFPAY ==
[2024-02-09 16:19] LABS: MANUAL DIFF FLAG NO
[2024-02-09 16:24] LABS: Basophils Percent Auto 0.3 % (0-2); Eosinophils Percent Auto 0.4 % (0-4); Hemoglobin 13.3 g/dl (12.0-16.0); Imm Gran Abs Auto 0.03 X10*3/uL (0.00-0.03); Imm Gran Pct Auto 0.4 % (0.0-0.4); Lymphocytes Absolute Auto 2.3 X10*3/uL (1.2-4.9); Lymphocytes Percent Auto 30.4 % (20-40); Mean Corpuscular Hemoglobin 32.4 pg (27.0-33.0); Mean Corpuscular Volume 92.7 fL (80.0-98.0); Mean Platelet Volume 9.8 fL (9.4-12.3); Monocytes Absolute Auto 0.3 X10*3/uL (0.1-1.2); Monocytes Percent Auto 4.5 % (2-11); Neutrophils Absolute Auto 4.8 x10*3/uL (2.0-8.3); Platelet Count 257 X10*3/uL (160-400); Red Cell Distribution Width 12.6 % (11.0-16.0); White Blood Count 7.5 X10*3/uL (4.8-10.8)
[2024-02-16 00:24] LABS: VITAMIN D (1,25 OH) D3 53 pg/mL; Vit D (1,25-Dihydroxy) Total 53 pg/mL (18-72); Vitamin D (1,25 OH) D2 <8 pg/mL
== END 2024-02-09 14:20 | disposition home or self-care (01) ==
LOC: HO.HMGCLDS 14:19
PROVIDERS: PCP Nurse Practitioner Family; Visit Provider Nurse Practitioner Family
DX: Z00.00 Encounter for general adult medical examination without abnormal findings (principal); I10 Essential (primary) hypertension; F51.01 Primary insomnia
CPT/HCPCS: 36415; 82652; 85025; 96127

== ENCOUNTER 2024-02-09 14:19 | Outpatient (AMB) | payer BC, SELFPAY ==
--- NOTE | 2024-02-09 14:25 | A.OFFPC_ITS ---
Vital Signs 02/09/24 14:26 Height 4 ft 11 in Weight 134 lb BMI 27.1 BP 118/72 Blood Pressure Location Rt brachial Position Sitting Pulse 83 Pulse Source Pulse Oximeter Pulse Oximetry (%) 98 Intake Visit Reasons: Annual PE Intake Note: pt is here for PE [facility] Required: No Accompanied by: Self / Same As Patient Allergies No Known Allergies Allergy (Verified 02/09/24 14:26) Tobacco use date assessed: 06/01/23 Dental Screening Dental Screen Date: 06/01/23 HPI HPI Comments History of Present Illness Details 43 y/o female patient who presents for P E. Patient of Gavin Gonzalez. Pmhx significant for HTN, Insomnia, Renal calculi, Renal cyst and micro- hematuria. Last Renal U/S done 11/2023: IMPRESSION: A few punctate echogenic foci are present in the left kidney which could represent tiny calcifications or possibly vascular calcifications. There Is no hydronephrosis. A small benign Bosniak class II left renal cyst is present. No further follow-up is needed. Denies any Hematuria or symptoms. Knows to f/u with Urology when needed. Pt reports that she has been on Depo injections for ~ 23 years straight and has never had Dexa to screen for Osteopenia. Advised to ask for Dexa on her next [employer] Appointment. Last PAP: 2022 ASCUS Neg HPV Mammo: 06/2023 Negative. [facility] Medical History (Updated 02/09/24 @ 18:08 by Monica Booker NP) Encounter for routine adult health examination without abnormal findings Renal cyst Renal calculi Surgical History [place] teeth extracted H/O bilateral breast reduction surgery Family History Father Hypertension Diabetes Mother Hypertension Breast cancer Social History Housing: House Patient Tobacco Use Status: Never used Tobacco e-Cigarette/Vaping Use: Never Used Current occupational status: employed Cognitive needs: No Hearing needs: No Vision needs: No Questionnaire PHQ-9 Over the last 2 weeks, how often have you been bothered by any of the following problems? 1. Little interest or pleasure in doing things: not at all 2. Feeling down, depressed, or hopeless: not at all 3. Trouble falling or staying asleep, or sleeping too much: not at all 4. Feeling tired or having little energy: not at all 5. Poor appetite or overeating: not at all 6. Feeling bad about yourself - or that you are a failure or have let yourself or your family down: not at all 7. Trouble concentrating on things, such as reading the newspaper or watching television: not at all 8. Moving or speaking so slowly that other people could have noticed. Or the opposite - being so fidgety or restless that you have been moving around a lot more than usual: not at all 9. Thoughts that you would be better off or of hurting yourself in some way: not at all Total score: 0 Depression Screening Interpretation: Negative Depression Screening Done: Yes 25036 - PHQ-9 Billing: Yes Source: Developed by Drs. Zachery Blood, Magdalena Whitehead, Bear Watkins and colleagues, with an educational richard from [employer]. Thrive Questionnaire Date Thrive assessed: 02/09/24 I am a: Patient What is your living situation today?: I have a steady place to live Within the past 12 months, did the food you bought not last and you didn't have the money to get more?: Never true Within the past 12 months, did you worry whether your food would run out before you got money to buy more?: Never true Do you have trouble paying for medicines?: No Do you have trouble getting transportation to medical appointments?: No Do you have trouble paying your heating and electricity bill?: No Do you have trouble taking care of your child, family member or friend?: No Do you have trouble with day-to-day activities such as bathing, preparing meals, shopping, managing finances, etc.?: No Are you currently unemployed and looking for a job?: No Are you interested in more education?: No Please select the resources that you would like help with: None Currently or been in a relationship where the following occur: No concerns reported THRIVE Score: 0 AUDIT C Alcohol Use Questionnaire (AUDIT-C) 1. How often do you have a drink containing alcohol?: 2-4 times a month 2. How many drinks containing alcohol do you have on a typical day when you are drinking?: 3 or 4 3. How often do you have six or more drinks on one occasion?: Less than monthly Total Score: 4 Score Reviewed/Action Taken: Yes LUIS EDUARDO-7 AMB Questionnaire LUIS EDUARDO-7 Date LUIS EDUARDO - 7 assessed: 02/09/24 Feeling nervous, anxious, or on edge: 0 = Not at all Not being able to stop or control worryin = Not at all Worrying too much about different things: 0 = Not at all Trouble relaxin = Not at all Being so restless that it is hard to sit still: 0 = Not at all Becoming easily annoyed or irritable: 0 = Not at all Feeling afraid as if something awful might happen: 0 = Not at all Total LUIS EDUARDO-7 score (0-4 normal; 5-9 mild; 10-14 moderate; 15-21 severe): 0 Source: Developed by Drs. Zachery Blood, Magdalena Whitehead, Bear Watkins and colleagues, with an educational richard from [employer]. LUIS EDUARDO-7 Assessment Billing LUIS EDUARDO-7 Assessment Tool: LUIS EDUARDO-7 Assessment 91724 Review of Systems Const All systems reviewed & are unremarkable except as noted in HPI and below Physical exam (Primary Care) Vital Signs: Last Vital Signs Pulse 83 02/09/24 14:26 BP 118/72 02/09/24 14:26 Pulse Ox 98 02/09/24 14:26 BMI result Body Mass Index 27.1 Tobacco/Smoking Status: Tobacco use Status Tobacco use date assessed 06/01/23 02/09/24 14:27 Patient Tobacco Use Status Never used Tobacco 02/09/24 14:27 e-Cigarette/Vaping Use Never Used 02/09/24 14:27 PHQ-9: PHQ-9 Score PHQ-9: Total score 0 02/09/24 15:12 Depression Screening Interpretation: Negative Thrive Assessment: Date of Thrive Assessment Date Thrive assessed 02/09/24 02/09/24 14:27 Currently or been in a relationship where the following occur: No concerns reported Const General: cooperative, comfortable and no acute distress Orientation/consciousness: patient oriented x3 HENMT Head: Yes normocephalic Ears: external ears normal and TM's normal bilaterally General nose exam: Normal external nose present and Normal nasal mucous membranes and turbinates present Face and sinus: Yes sinuses nontender Mouth: moist mucous membranes Throat: Yes tonsils normal and Yes uvula midline Eyes Pupils: Equal, round and reactive pupils present EOM: EOMs intact bilaterally Direct Ophthalmoscopy: normal light reflex Neck Neck: Yes full ROM and Yes no lymphadenopathy Thyroid: Thyroid normal Resp Effort & Inspection: normal respiratory effort Auscultation: clear to auscultation bilaterally, no crackles, no rales, no rhonchi and no wheezes Percussion: percussion normal Cardio Heart sounds: S1 normal heart sound present and S2 normal heart sound present GI Inspection: Yes normal to inspection Palpation (GI): Soft to palpation, not firm, nontender, no guarding, not rigid and No hepatosplenomegaly present Percussion: Yes normal to percussion Auscultation: normal bowel sounds Rectal Exam - Female: deferred General: Yes no CVA tenderness and Yes deferred Back/Spine/Pelvis Back: no CVA tenderness Skin General skin exam: no rashes or lesions noted Neuro General: patient oriented x3, gait normal and moves all extremities Cranial nerves: Yes Equal, round and reactive pupils present Motor exam (neuro): 5/5 motor strength present throughout Extrem General: Yes full ROM and Yes capillary refill normal Psych Speech and movement: Normal speech and movement present Coding Level of Care Code Est Pt Prev Care 40-64y(28796) Diagnoses Encounter for routine adult health examination without abnormal findings Z00.00 Primary hypertension I10 Hypertension type: primary hypertension Primary insomnia F51.01 Insomnia type: primary Additional Codes LUIS EDUARDO-7 Assessment Billing - LUIS EDUARDO-7 Assessment Tool: LUIS EDUARDO-7 Assessment 21835 ([id number]) PHQ-9 - 61818 - PHQ-9 Billing: Yes ([id number]) Time Spent (min) 30 Assessment & Plan Assessment & Plan (1) Encounter for routine adult health examination without abnormal findings: Code(s): Z00.00 - Encounter for general adult medical examination without abnormal findings Category: Medical Plan: Normal Exam (2) HTN (hypertension): Code(s): I10 - Essential (primary) hypertension Category: Medical Qualifiers: Hypertension type: primary hypertension Qualified Code(s): I10 - Essential (primary) hypertension Plan: Well controlled on current regiment. (3) Insomnia: Code(s): G47.00 - Insomnia, unspecified Category: Medical Qualifiers: Insomnia type: primary Qualified Code(s): F51.01 - Primary insomnia Plan: Well controlled on current regiment Orders: Orders Vitamin D 1,25 dihydroxy Today Z00.00 - Encounter for general adult medical examination without abnormal findings Complete Blood Count Auto Diff Today Z00.00 - Encounter for general adult medical examination without abnormal findings Medications: Refilled irbesartan 75 mg PO DAILY 90 tabs 1RF I10 - Essential (primary) hypertension trazodone 50 mg PO BEDTIME PRN 30 tabs 2RF sleep G47.00 - Insomnia, unspecified amlodipine 2.5 mg PO DAILY 90 tabs 1RF I10 - Essential (primary) hypertension hydrochlorothiazide 12.5 mg PO DAILY 30 days 90 caps 1RF I10 - Essential (primary) hypertension
[2024-02-09 14:26] VITALS: BP 118/72; PULSE 83; O2SAT 98; BMI 27.1
== END 2024-02-09 15:25 | disposition home or self-care (01) ==
PROVIDERS: PCP Nurse Practitioner Family; Visit Provider Nurse Practitioner Family
DX: Z00.00 Encounter for general adult medical examination without abnormal findings (principal); I10 Essential (primary) hypertension; F51.01 Primary insomnia

== ENCOUNTER 2024-07-15 08:04 | Outpatient (REF) | payer BC, SELFPAY ==
--- NOTE | ~2024-07-15 | XR_ITS ---
EXAMINATION: XR LUMBOSACRAL SPINE CLINICAL INFORMATION: R20.0 - Anesthesia of skin COMPARISON: None available. TECHNIQUE: Three views of the lumbosacral spine. FINDINGS: There is a minimal levoconvex scoliosis, apex at L3. There is straightening of the normal lordosis. No fracture, subluxation, compression deformity, or suspicious bone lesion. Moderate to severe disc degeneration L5-S1. Discs otherwise appear relatively preserved with only mild degeneration at L1-2. Normal facet alignment without significant facet arthropathy. The SI joints appear normal. The imaged sacrum is normal. No soft tissue abnormalities. XR/XR lumbar spine 2-3V IMPRESSION: Degenerative spondylosis relatively confined to L5-S1. Electronically signed by: Danielito Buchanan MD 07/15/2024 03:28 PM EDT
--- NOTE | ~2024-07-15 | XR_ITS ---
EXAMINATION: XR THORACIC SPINE CLINICAL INFORMATION: R20.0 - Anesthesia of skin COMPARISON: None available. TECHNIQUE: 3 views of the thoracic spine were obtained. FINDINGS: There is a very gentle right convex thoracolumbar scoliosis, apex at T12. There is a normal kyphosis. There is no subluxation. There are early degenerative disc changes. Normal facets. The imaged mediastinal, pulmonary, and paraspinal soft tissues appear normal. XR/XR thoracic spine 2V IMPRESSION: Early degenerative disc changes. Otherwise normal. Electronically signed by: Dnaielito Buchanan MD 07/15/2024 03:25 PM EDT
[2024-07-15 10:36] LABS: MANUAL DIFF FLAG NO
[2024-07-15 10:48] LABS: Basophils Percent Auto 0.3 % (0-2); Eosinophils Percent Auto 0.5 % (0-4); Hematocrit 39.1 % (37.0-47.0); Hemoglobin 13.2 g/dl (12.0-16.0); Imm Gran Abs Auto 0.01 X10*3/uL (0.00-0.03); Imm Gran Pct Auto 0.2 % (0.0-0.4); Lymphocytes Absolute Auto 1.9 X10*3/uL (1.2-4.9); Lymphocytes Percent Auto 31.7 % (20-40); Mean Corpuscular HGB Conc 33.8 g/dl (31.0-35.0); Mean Corpuscular Volume 94.7 fL (80.0-98.0); Mean Platelet Volume 10.3 fL (9.4-12.3); Monocytes Absolute Auto 0.4 X10*3/uL (0.1-1.2); Monocytes Percent Auto 6.8 % (2-11); Neutrophils Absolute Auto 3.6 x10*3/uL (2.0-8.3); Neutrophils Percent Auto 60.5 % (45-73); Platelet Count 216 X10*3/uL (160-400); Red Blood Count 4.13 X10*6/uL (4.20-5.50); Red Cell Distribution Width 12.7 % (11.0-16.0)
[2024-07-15 10:57] LABS: Appearance Urine Clear; Color Urine Yellow; Glucose Urine UA Negative (Negative); Leukocyte Esterase Urine Moderate (2+) (Negative); Nitrite Urine Negative (Negative); PH 6.5 (5.0-9.0); Specific Gravity - Urine 1.015 (1.005-1.025); UMIC TRIGGER UACC YES; Urine Blood Moderate (2+) (Negative); Urine Ketones Negative (Negative); Urine Protein Negative (Neg-Trace)
[2024-07-15 11:13] LABS: Alanine Aminotransferase 8 U/L (0-31); Albumin Level 4.2 g/dL (3.5-5.0); Alkaline Phosphatase 54 U/L (39-117); Anion Gap 9 (12-20); Aspartate Amino Transferase 23 U/L (5-31); Bilirubin Total 0.8 mg/dL (0.0-1.0); Blood Urea Nitrogen 17 mg/dL (9-16); Calcium 9.2 mg/dL (8.4-10.2); Carbon Dioxide 25 mmol/L (22-29); Chloride 110 mmol/L (96-108); Estimated Glomerular Filt Rate > 60; Glucose Random 104 mg/dL (60-115); Potassium 4.1 mmol/L (3.3-5.1); Sodium 140 mmol/L (135-145); Total Protein 7.3 g/dL (6.5-8.0)
[2024-07-15 11:17] LABS: Bacteria Urine None Seen (None Seen); Hyaline Casts Urine 0-2 /LPF (0-2); UACC Culture Trigger YES; WBC Urine 0-5 /HPF (0-5)
[2024-07-15 11:25] LABS: HIV AB/AG Nonreactive (Nonreactive); HIV Num 1 0.06 S/CO (0.00-0.99); Syphilis Screen Nonreactive (Nonreactive)
[2024-07-15 11:28] LABS: TSH reflex Free T4 2.02 uIU/mL (0.32-4.0)
[2024-07-15 11:31] LABS: Vitamin B12 453 pg/mL (200-900)
[2024-07-16 21:54] LABS: A. Phagocytphilium DNA,RT-PCR NOT DETECTED (NOT DETECTED); Babesia Microti DNA, RT-PCR NOT DETECTED (NOT DETECTED); Borrelia Miyamotoi,DNA RT-PCR NOT DETECTED (NOT DETECTED); E.Chaffeensis DNA RT-PCR NOT DETECTED (NOT DETECTED); Lyme(Borrelia ssp)DNA RT-PCR NOT DETECTED (NOT DETECTED)
== END 2024-07-15 08:05 | disposition home or self-care (01) ==
LOC: HO.HMGCX 08:04
PROVIDERS: PCP Nurse Practitioner Family; Visit Provider Nurse Practitioner Family
DX: R20.0 Anesthesia of skin (principal); R20.2 Paresthesia of skin; R82.90 Unspecified abnormal findings in urine
CPT/HCPCS: 36415; 72070; 72100; 80053; 81001; 82607; 84207; 84443; 85025; 86780; 87086; 87389; 87468; 87469; 87478; 87484; 87798; 96127

== ENCOUNTER 2024-07-15 08:04 | Outpatient (AMB) | payer BC, SELFPAY ==
[2024-07-15 08:15] VITALS: BP 118/70; PULSE 80; O2SAT 98; BMI 26.5
--- NOTE | 2024-07-15 08:15 | MHC.PC.OV ---
Vital Signs 07/15/24 08:15 Height 4 ft 11 in Weight 131 lb BMI 26.5 BP 118/70 Blood Pressure Location Lt brachial Position Sitting Pulse 80 Pulse Source Pulse Oximeter Pulse Oximetry (%) 98 Intake Visit Reasons: numbness on right side x 2 months Accompanied by: Self / Same As Patient Allergies No Known Allergies Allergy (Verified 07/15/24 08:15) Tobacco use date assessed: 07/15/24 Dental Screening Dental Screen Date: 07/15/24 Did you have a dental visit in the last 12 months?: Yes Did you have a dental problem in the last 6 months where you did not have access to dental care?: No Was dental information given to patient?: Patient has dentist HPI numbness on right side x 2 months HPI Details Chief Complaint The patient complains of ongoing numbness in the right abdomen radiating to the back and upper flank. History of Present Illness The patient is a 43-year-old female presenting with ongoing numbness in the right abdomen. The numbness, which radiates to the back and upper flank, started a couple of months ago and was initially accompanied by tenderness upon touch. The patient has a significant history of lower back issues that might be contributing to these symptoms. While she reports an improvement in the numbness, the sensation is still present. She denies any associated symptoms such as rash, pain, or signs suggestive of shingles. Physical examination revealed no erythema, pain, or tenderness upon deep palpation of the abdominal quadrants. There are also no dermatological signs observed. Social History - Employment, housing, education, family status, family planning, substance use, exercise, functional status, level of activity, current nutritional intake and details of weight management were not discussed in the conversation. Health Maintenance Review of Systems - Neurological: Reports numbness in the right abdomen radiating to the back and upper flank. Denies any additional neurological symptoms. - Dermatological: Denies erythema, rash, and dermatitis. - General: Denies fever. Physical Exam General: Cooperative, healthy appearing, comfortable, no acute distress and well developed Orientation: Patient oriented x3 Limitations: No limitations Head: Normal to inspection Ears: Hearing grossly normal bilaterally Nose: Normal external nose present Face and sinus: Normal facial exam Eyes: Appearance normal, both eyes and all related structures Neck: Normal visual inspection and Yes full ROM Respiratory: Normal respiratory effort and able to speak in complete sentences. Clear to auscultation bilaterally Cardiovascular: Regular rate and rhythm. Normal S1 and S2 GI: Normal to inspection. Soft to palpation and nontender. No pain with palpation in the right upper quadrant and right lower quadrant. No tenderness, no erythema, no signs of dermatitis. Skin: No rashes or lesions noted Neuro: Patient oriented x3 Extremities: Normal to inspection Results Plan To address the numbness in the right abdomen, lumbar and thoracic spine x-rays will be performed to rule out nerve impingement related to her lower back issues. Since her condition is showing improvement, gabapentin will not be initiated at this point. Laboratory tests are also planned to gather more information regarding her condition. She is aware of the importance of contacting me if her symptoms deteriorate. Discussion Notes During the visit, I discussed with the patient the likelihood of nerve impingement as a potential cause of her symptoms and the plan to obtain lumbar and thoracic spine x-rays for further evaluation. The decision not to start gabapentin at this time was discussed, given the improvement in her symptoms. I emphasized the importance of monitoring her symptoms closely and advised her to contact me if she experiences any worsening of her condition. The patient was informed about the role of additional laboratory tests in providing a more comprehensive clinical picture. Patient Instructions - Undergo lumbar and thoracic spine x-rays as scheduled. - Monitor for any changes or worsening of symptoms and contact me if necessary. - Be aware that gabapentin treatment might be considered if symptoms do not continue to improve. - Follow up with any recommended laboratory tests. [facility] Medical History Encounter for routine adult health examination without abnormal findings Renal cyst Renal calculi Surgical History [place] teeth extracted H/O bilateral breast reduction surgery Family History Father Hypertension Diabetes Mother Hypertension Breast cancer Social History Housing: House Patient Tobacco Use Status: Never used Tobacco e-Cigarette/Vaping Use: Never Used Current occupational status: employed Cognitive needs: No Hearing needs: No Vision needs: No Questionnaire PHQ-9 Over the last 2 weeks, how often have you been bothered by any of the following problems? 1. Little interest or pleasure in doing things: not at all 2. Feeling down, depressed, or hopeless: not at all 3. Trouble falling or staying asleep, or sleeping too much: not at all 4. Feeling tired or having little energy: not at all 5. Poor appetite or overeating: not at all 6. Feeling bad about yourself - or that you are a failure or have let yourself or your family down: not at all 7. Trouble concentrating on things, such as reading the newspaper or watching television: not at all 8. Moving or speaking so slowly that other people could have noticed. Or the opposite - being so fidgety or restless that you have been moving around a lot more than usual: not at all 9. Thoughts that you would be better off or of hurting yourself in some way: not at all Total score: 0 Depression Screening Interpretation: Negative Depression Screening Done: Yes 23801 - PHQ-9 Billing: Yes Source: Developed by Drs. Zachery Blood, Magdalena Whitehead, Bear Watkins and colleagues, with an educational richard from [employer]. Thrive Questionnaire Date Thrive assessed: 07/15/24 I am a: Patient What is your living situation today?: I have a steady place to live Within the past 12 months, did the food you bought not last and you didn't have the money to get more?: Never true Within the past 12 months, did you worry whether your food would run out before you got money to buy more?: Never true Do you have trouble paying for medicines?: No Do you have trouble getting transportation to medical appointments?: No Do you have trouble paying your heating and electricity bill?: No Do you have trouble taking care of your child, family member or friend?: No Do you have trouble with day-to-day activities such as bathing, preparing meals, shopping, managing finances, etc.?: No Are you currently unemployed and looking for a job?: No Are you interested in more education?: No Please select the resources that you would like help with: None Currently or been in a relationship where the following occur: No concerns reported THRIVE Score: 0 AUDIT C Alcohol Use Questionnaire (AUDIT-C) 1. How often do you have a drink containing alcohol?: 2-4 times a month 2. How many drinks containing alcohol do you have on a typical day when you are drinking?: 3 or 4 3. How often do you have six or more drinks on one occasion?: Never Total Score: 3 Score Reviewed/Action Taken: Yes LUIS EDUARDO-7 AMB Questionnaire LUIS EDUARDO-7 Date LUIS EDUARDO - 7 assessed: 07/15/24 Feeling nervous, anxious, or on edge: 0 = Not at all Not being able to stop or control worryin = Not at all Worrying too much about different things: 0 = Not at all Trouble relaxin = Not at all Being so restless that it is hard to sit still: 0 = Not at all Becoming easily annoyed or irritable: 0 = Not at all Feeling afraid as if something awful might happen: 0 = Not at all Total LUIS EDUARDO-7 score (0-4 normal; 5-9 mild; 10-14 moderate; 15-21 severe): 0 Source: Developed by Drs. Zachery Blood, Magdalena Whitehead, Bear Watkins and colleagues, with an educational richard from [employer]. LUIS EDUARDO-7 Assessment Billing LUIS EDUARDO-7 Assessment Tool: LUIS EDUARDO-7 Assessment 96810 Physical exam (Primary Care) Vital Signs: Last Vital Signs Pulse 80 07/15/24 08:15 BP 118/70 07/15/24 08:15 Pulse Ox 98 07/15/24 08:15 BMI result Body Mass Index 26.5 Tobacco/Smoking Status: Tobacco use Status Tobacco use date assessed 07/15/24 07/15/24 08:17 Patient Tobacco Use Status Never used Tobacco 07/15/24 08:17 e-Cigarette/Vaping Use Never Used 07/15/24 08:17 PHQ-9: PHQ-9 Score PHQ-9: Total score 0 07/15/24 08:17 Depression Screening Interpretation: Negative Thrive Assessment: Date of Thrive Assessment Date Thrive assessed 07/15/24 07/15/24 08:17 Currently or been in a relationship where the following occur: No concerns reported Coding Level of Care Code Est Pt Level 3 (35456) Diagnoses Numbness and tingling R20.0; R20.2 Additional Codes LUIS EDUARDO-7 Assessment Billing - LUIS EDUARDO-7 Assessment Tool: LUIS EDUARDO-7 Assessment 94392 ([id number]) PHQ-9 - 85491 - PHQ-9 Billing: Yes ([id number]) Assessment & Plan Assessment & Plan (1) Numbness and tingling: Code(s): R20.0 - Anesthesia of skin; R20.2 - Paresthesia of skin Category: Medical Plan . Orders: Orders XR lumbar spine 2-3V Today R20.0 - Anesthesia of skin, R20.2 - Paresthesia of skin Comprehensive Met. Panel Today R20.0 - Anesthesia of skin, R20.2 - Paresthesia of skin TSH reflex Free T4 Today R20.0 - Anesthesia of skin, R20.2 - Paresthesia of skin UA CC w/rflx Micro + Cult Today R20.0 - Anesthesia of skin, R20.2 - Paresthesia of skin Syphilis Screen Today R20.0 - Anesthesia of skin, R20.2 - Paresthesia of skin XR thoracic spine 2V Today R20.0 - Anesthesia of skin, R20.2 - Paresthesia of skin Complete Blood Count Auto Diff Today R20.0 - Anesthesia of skin, R20.2 - Paresthesia of skin Vitamin B12 Today R20.0 - Anesthesia of skin, R20.2 - Paresthesia of skin Vitamin B6 Today R20.0 - Anesthesia of skin, R20.2 - Paresthesia of skin Tick-borne Disease Molecular Today R20.0 - Anesthesia of skin, R20.2 - Paresthesia of skin HIV Ab/Ag Today R20.0 - Anesthesia of skin, R20.2 - Paresthesia of skin
== END 2024-07-15 09:06 | disposition home or self-care (01) ==
LOC: HO.HMCC 08:05
PROVIDERS: PCP Nurse Practitioner Family; Visit Provider Nurse Practitioner Family
DX: R20.0 Anesthesia of skin (principal); R20.2 Paresthesia of skin

== ENCOUNTER → 2024-07-15 08:54 | Outpatient (BNV) | payer BC, SELFPAY | PROVIDERS: PCP Nurse Practitioner Family; Visit Provider Radiology Diagnostic Radiology | DX: M51.34 Other intervertebral disc degeneration, thoracic region (principal); M47.896 Other spondylosis, lumbar region; R20.0 Anesthesia of skin | CPT/HCPCS: 72070; 72100 ==

== ENCOUNTER → 2025-02-13 15:46 | Outpatient (AMB) | payer BC, SELFPAY ==
--- OUTSIDE RECORDS SUMMARY | 2025-02-10 23:59 | XMS_ITS | Continuity of Care Document ---
Author Organization [facility] Address [address] [place] [address], [address] [address]- Care Team Providers Care Sap Portal Architect Name Role Phone Carlos NIÑO, Gavin Alves Primary Care Physician [phone] Encounter [facility] [id number] Date(s): 02/03/25 - 02/10/25 [facility] [address] [facility], [address] [place] [id number]- Attending Physician: Felisha Moore MD Referring Physician: Gavin Gonzalez NP Encounter Type: Office Visit Allergies, Adverse Reactions, Alerts No Known Allergies Medications Daily Multiple Vitamins oral tablet By Mouth, Daily, 0 Refills, Maintenance, 05/21/20 4:27:00 PM EST, Partial fill upon patient request if the prescription is for a schedule II opioid drug. Start Date: 05/21/20 Status: Ordered Medication Dispense Status: Completed Total Allowed Fills: 1 Fills Dispensed: 0 Hydrochlorothiazide = 12.5 mg, By Mouth, Daily, 0 Refills, Maintenance, 02/16/24 2:23:00 PM EST, Partial fill upon patient request if the prescription is for a schedule II opioid drug. Start Date: 02/16/24 Status: Ordered Medication Dispense Status: Completed Total Allowed Fills: 1 Fills Dispensed: 0 irbesartan 75 mg oral tablet 1 tablet = 75 mg, By Mouth, Daily, 0 Refills, Maintenance, 03/11/22 4:22:00 PM EST, Partial fill upon patient request if the prescription is for a schedule II opioid drug. Start Date: 03/11/22 Status: Ordered Medication Dispense Status: Completed Total Allowed Fills: 1 Fills Dispensed: 0 medroxyPROGESTERone 150 mg/mL intramuscular suspension 1 mL, Intramuscular, Every 3 months, # 1 mL, 4 Refills, Maintenance, 02/07/24 2:44:00 PM EST, [facility], 150, cm, 12/27/22 15:23:00 EDT, Height, 56.8, kg, 12/27/22 15:23:00 EDT, Dry Weight Start Date: 02/07/24 Status: Ordered Medication Dispense Status: Completed Quantity: 1.0 Unit: mL Total Allowed Fills: 1 Fills Dispensed: 0 Vitamin D 53925 iu oral capsule 1, capsule, By Mouth, Every week, # 4 capsule, Refills 0, Maintenance, 07/26/24 3:54:00 PM EDT, Partial fill upon patient request if the prescription is for a schedule II opioid drug. Start Date: 07/26/24 Status: Ordered Medication Dispense Status: Completed Quantity: 4.0 Unit: capsule Total Allowed Fills: 1 Fills Dispensed: 0 Problem List Condition Confirmation Course Effective Dates Status Health St atus Informant ASCUS /HPV+ 1, 2 Confirmed 03/11/22 Active Breast lump present Confirmed Active Breast pain Confirmed Active LGSIL-H HPV+ 3, 4 Confirmed 03/02/20 Active Degenerative disc disease Confirmed Active Eczema Confirmed Active Family history of breast cancer in first degree relative Confirmed Active Family history of neoplasm of breast Confirmed Active Annual physical exam Confirmed Active 1results: ECC neg, cx bx peter 1. plan for repeat pap 1 year. pt notified, letter sent 2colpo - cx bx 7 o'clock, ECC 3Bx neg, ECC CIN1. pt notified of results, prefers treatment option vs. waiting 1 year for repeat colpo/Pap/HPV. Referral placed with [facility] 4colpo - ECC and bx 1 o'clock, cw low grade changes Vital Signs Most recent to oldest [Reference Range]: 1 Weight 59.3 kg (02/03/25 4:11 PM) Blood Pressure [90-138/55-84 mm Hg] 134/ 98mm Hg (02/03/25 4:11 PM) Blood pressure sites Arm, left (02/03/25 4:11 PM) Weight Obtained Via Standing scale (02/03/25 4:11 PM) Social History Social History Type Response Smoking Status Never (less than 100 in lifetime) entered on: 03/02/20 Sexual Orientation Self described orien tation: ; Straight or heterosexual Sex Sex Representation Female (finding) Patient Care team information Care Team Personnel Name: Seble Jackson RN Position: S RN Member Role: Primary Care Nurse Name: Carlos NIÑO , Gavin Alvse Position: Reference Physician Member Role: PCP Address: [address] [place] [address] Telecom: Name: Jennifer HERRERA, Tracy Guo Position: [facility] Onco RN Member Role: Primary Care Nurse Care Team Related Persons Name: RAYMOND WOODARD Name: LEE GARDNER Insurance Providers Guarantor name: [employer] Plan Information #: 1 Payer: [facility] Payer Identifier: NA Member Number: [id number] Group Number: [id number] Subscriber Identifier: [id number] Relationship to Subscriber: self Coverage Type: NA Coverage Verification Date: NA Telecom: NA Address:
[2025-02-13 15:58] VITALS: BP 142/92; PULSE 88; RESP 16; O2SAT 100; BMI 26.5
--- NOTE | 2025-02-13 15:58 | A.OFFPC_ITS ---
Vital Signs 02/13/25 15:58 Height 4 ft 11 in Weight 131 lb BMI 26.5 BP 142/92 H Blood Pressure Location Lt brachial Position Sitting Respiration 16 Pulse 88 Pulse Source Pulse Oximeter Pulse Oximetry (%) 100 Oxygen Delivery Method Room Air Intake Visit Reasons: Annual PE Accompanied by: Self / Same As Patient Allergies No Known Allergies Allergy (Verified 07/15/24 08:15) Medication List - Last Reconciled 02/13/25 by NANCY ShethP- amlodipine 2.5 mg PO DAILY ergocalciferol (vitamin D2) 1,250 mcg PO QWEEK hydrochlorothiazide 12.5 mg PO DAILY 30 days irbesartan 75 mg PO DAILY Lacto no.29-[id number]-JSC-larch 25B cell-25B cell-50 mg (Women's Probiotic) caps PO medroxyprogesterone mg IM multivitamin (Daily Multi-Vitamin tablet) 1 tab PO DAILY Tobacco use date assessed: 07/15/24 Dental Screening Dental Screen Date: 07/15/24 Did you have a dental visit in the last 12 months?: Yes Did you have a dental problem in the last 6 months where you did not have access to dental care?: No Was dental information given to patient?: Patient has dentist HPI Annual PE HPI Details History of Present Illness The patient is a 44-year-old female presenting for a physical exam. For health maintenance, a referral for colon screening will be placed. She has a infant and toddler teacher for Pap smears and is on a Depo. The patient reports left breast tenderness and intends to follow up with her infant and toddler teacher to potentially schedule a mammogram sooner than her appointment in June. She complains of right upper pelvic discomfort and associated abdominal discomfort that radiates laterally and posteriorly to right flank. She has a known history of kidney stones. She denies any chest pain, shortness of breath, blood in stool, constipation, or diarrhea Health Maintenance The patient is a 44-year-old female presenting for a physical exam. A referral will be placed for a colon cancer screening. She will continue to follow with her infant and toddler teacher for Pap smears and is currently on a Depo injection. Social History Review of Systems - Gastrointestinal: Reports right upper pelvic discomfort and abdominal discomfort that radiates laterally and to the posterior on the right side. - Denies other abdominal pain, blood in stool, constipation, or diarrhea. - Breasts: Reports left breast tendernes s. - Cardiovascular: Denies chest pain. - Respiratory: Denies shortness of breat h. Physical Exam General: Cooperative, healthy appearing, comfortable, no acute distress and well developed Orientation: Patient oriented x3 Limitations: No limitations Head: Normal to inspection Ears: Hearing grossly normal bilaterally Nose: Normal external nose present Face and sinus: Normal facial exam Eyes: Appearance normal, both eyes and all related structures Neck: Normal visual inspection and Yes full ROM Respiratory: Normal respiratory effort and able to speak in complete sentences. Clear to auscultation bilaterally Cardiovascular: Regular rate and rhythm. Normal S1 and S2 GI: Normal to inspection. Slight tenderness with palpation. Soft to palpation and nontender in right upper and lower quadrants. No rebound tenderness with CVA /flank palpation on the right side, but some pressure felt. Skin: No rashes or lesions noted Neuro: Patient oriented x3 Extremities: Normal to inspection Results Plan 1. Right Upper Pelvic Discomfort The patient presents with right upper pelvic discomfort and abdominal discomfort that radiates laterally and posteriorly on the right side, with a known history of kidney stones. Examination reveals slight tenderness on palpation and right flank pressure. Differential diagnoses include hydronephrosis or a kidney stone. A CT scan of the abdomen and pelvis will be ordered to further evaluate. 2. Left Breast Tenderness The patient reports left breast tenderness and will follow up with her infant and toddler teacher to discuss obtaining a mammogram sooner than her scheduled appointment in June. 3. htn on medication, she will take her BP at home and send me values in the near future (was supposed to to this previously, was not done) Discussion Notes I have discussed with the patient her complaint of right-sided pelvic and abdominal discomfort. Given her history of kidney stones, I explained that this could be due to a new stone or possible hydronephrosis. To investigate further, I will order a CT scan of her abdomen and pelvis. Regarding the left breast tenderness, she will follow up with her PERSONNEL PLACEMENT SPECIALIST to potentially get an earlier mammogram. I also placed a referral for routine colon cancer screening. Patient Instructions - We are ordering a CT scan of your abdo men and pelvis to investigate the cause of your right-sided discomfort. - Please follow up with your PERSONNEL PLACEMENT SPECIALIST provide r to discuss your left breast tenderness and to inquire about getting a mammogram sooner than June. - We have placed a referral for you to s chedule a colon cancer screening. - Continue with your regular PERSONNEL PLACEMENT SPECIALIST care, i ncluding Pap smears and Depo-Provera injections. [facility] Medical History Encounter for routine adult health examination without abnormal findings Renal cyst Renal calculi Surgical History [place] teeth extracted H/O bilateral breast reduction surgery Family History Father Hypertension Diabetes Mother Hypertension Breast cancer Social History Housing: House Patient Tobacco Use Status: Never used Tobacco e-Cigarette/Vaping Use: Never Used Current occupational status: employed Cognitive needs: No Hearing needs: No Vision needs: No Questionnaire PHQ-9 Over the last 2 weeks, how often have you been bothered by any of the following problems? 1. Little interest or pleasure in doing things: not at all 2. Feeling down, depressed, or hopeless: not at all 3. Trouble falling or staying asleep, or sleeping too much: not at all 4. Feeling tired or having little energy: not at all 5. Poor appetite or overeating: not at all 6. Feeling bad about yourself - or that you are a failure or have let yourself or your family down: not at all 7. Trouble concentrating on things, such as reading the newspaper or watching television: not at all 8. Moving or speaking so slowly that other people could have noticed. Or the opposite - being so fidgety or restless that you have been moving around a lot more than usual: not at all 9. Thoughts that you would be better off or of hurting yourself in some way: not at all Total score: 0 Depression Screening Interpretation: Negative Depression Screening Done: Yes 56875 - PHQ-9 Billing: Yes Source: Developed by Drs. Zachery Blood, Magdalena Whitehead, Bear Watkins and colleagues, with an educational richard from [employer]. Thrive Questionnaire Date Thrive assessed: 07/15/24 I am a: Patient What is your living situation today?: I have a steady place to live Within the past 12 months, did the food you bought not last and you didn't have the money to get more?: Never true Within the past 12 months, did you worry whether your food would run out before you got money to buy more?: Never true Do you have trouble paying for medicines?: No Do you have trouble getting transportation to medical appointments?: No Do you have trouble paying your heating and electricity bill?: No Do you have trouble taking care of your child, family member or friend?: No Do you have trouble with day-to-day activities such as bathing, preparing meals, shopping, managing finances, etc.?: No Are you currently unemployed and looking for a job?: No Are you interested in more education?: No Please select the resources that you would like help with: None Currently or been in a relationship where the following occur: No concerns reported THRIVE Score: 0 AUDIT C Alcohol Use Questionnaire (AUDIT-C) 1. How often do you have a drink containing alcohol?: 2-4 times a month 2. How many drinks containing alcohol do you have on a typical day when you are drinking?: 3 or 4 3. How often do you have six or more drinks on one occasion?: Never Total Score: 3 Score Reviewed/Action Taken: Yes LUIS EDUARDO-7 AMB Questionnaire LUIS EDUARDO-7 Date LUIS EDUARDO - 7 assessed: 07/15/24 Feeling nervous, anxious, or on edge: 0 = Not at all Not being able to stop or control worryin = Not at all Worrying too much about different things: 0 = Not at all Trouble relaxin = Not at all Being so restless that it is hard to sit still: 0 = Not at all Becoming easily annoyed or irritable: 0 = Not at all Feeling afraid as if something awful might happen: 0 = Not at all Total LUIS EDUARDO-7 score (0-4 normal; 5-9 mild; 10-14 moderate; 15-21 severe): 0 Source: Developed by Drs. Zachery Blood, Magdalena Whitehead, Bear Watkins and colleagues, with an educational richard from [employer]. LUIS EDUARDO-7 Assessment Billing LUIS EDUARDO-7 Assessment Tool: LUIS EDUARDO-7 Assessment 54611 Physical exam (Primary Care) Vital Signs: Last Vital Signs Pulse 88 02/13/25 15:58 Resp 16 02/13/25 15:58 BP 142/92 H 02/13/25 15:58 Pulse Ox 100 02/13/25 15:58 Oxygen Delivery Method Room Air 02/13/25 15:58 BMI result Body Mass Index 26.5 Tobacco/Smoking Status: Tobacco use Status Tobacco use date assessed 07/15/24 02/13/25 15:58 Patient Tobacco Use Status Never used Tobacco 02/13/25 15:58 e-Cigarette/Vaping Use Never Used 02/13/25 15:58 PHQ-9: PHQ-9 Score PHQ-9: Total score 0 02/13/25 16:10 Depression Screening Interpretation: Negative Thrive Assessment: Date of Thrive Assessment Date Thrive assessed 07/15/24 02/13/25 15:58 Currently or been in a relationship where the following occur: No concerns reported Coding Level of Care Code Est Pt Prev Care 40-64y(82041) Diagnoses Screening for colon cancer Z12.11 Abdominal pain R10.9 Pelvic pain R10.2 Additional Codes LUIS EDUARDO-7 Assessment Billing - LUIS EDUARDO-7 Assessment Tool: LUIS EDUARDO-7 Assessment 83124 ([id number]) PHQ-9 - 15267 - PHQ-9 Billing: Yes ([id number]) Assessment & Plan Assessment & Plan (1) Screening for colon cancer: Code(s): Z12.11 - Encounter for screening for malignant neoplasm of colon Category: Medical (2) Abdominal pain: Code(s): R10.9 - Unspecified abdominal pain Category: Medical (3) Pelvic pain: Code(s): R10.2 - Pelvic and perineal pain Category: Medical Plan . Orders: Orders Complete Blood Count Auto Diff Today Z00.00 - Encounter for general adult medical examination without abnormal findings TSH reflex Free T4 Today Z00.00 - Encounter for general adult medical exa mination without abnormal findings UA CC w/rflx Micro + Cult Today Z00.00 - Encounter for general adult medical examination without abnormal findings CT abdomen pelvis wo IV con Today R10.2 - Pelvic and perineal pain, R10.9 - Unspecified abdominal pain Comprehensive [place]. Panel Fast Today Z00.00 - Encounter for general adult medical examination without abnormal findings Lipid Panel Today Z00.00 - Encounter for general adult medical examination without abnormal findings Referrals Gastroenterology Referral Z12.11 - Encounter for screening for malignant neoplasm of colon
== END ==
LOC: HO.HMCC 15:47
PROVIDERS: PCP Nurse Practitioner Family; Visit Provider Nurse Practitioner Family
DX: Z00.00 Encounter for general adult medical examination without abnormal findings (principal); R10.11 Right upper quadrant pain; R10.21 Pelvic and perineal pain right side; Z12.11 Encounter for screening for malignant neoplasm of colon

== ENCOUNTER → 2025-02-13 15:46 | Outpatient (BNVA) | payer BC, SELFPAY | PROVIDERS: PCP Nurse Practitioner Family; Visit Provider Nurse Practitioner Family | DX: Z00.00 Encounter for general adult medical examination without abnormal findings (principal); N64.4 Mastodynia; I10 Essential (primary) hypertension; R10.21 Pelvic and perineal pain right side | CPT/HCPCS: 96127 ==